=== PATIENT | male | born 1960 | race Caucasian/White ===

== ENCOUNTER 2016-07-11 13:10 | Inpatient (IN) | payer BC ==
--- NOTE | ~2016-07-11 | DS ---
Discharge Summary [facility] [address] [place]. [address] NAME: BHAVYA BENSON JR : 56 STATUS : DIS IN PAT#: [id number] AGE: 55 ADM/REG DATE : 07/11/16 MR#: [id number] REPORT SERV DATE: 07/14/16 DICTATED BY: ALVARO MARIE II DATE: 07/13/16 REPORT STATUS : Draft TRANSCRIBED BY: MODL DATE: 07/13/16 ADMISSION DATE: 07/11/2016 DISCHARGE DATE: 07/13/2016 DISCHARGE DIAGNOSES: 1. Biliary pancreatitis. 2. Gallstones. 3. Chronic lymphocytic leukemia. 4. Hypertension. CONSULTS: Dr. Garcia with Surgery. PROCEDURE: Laparoscopic cholecystectomy by Dr. Garcia. BRIEF HISTORY OF PRESENT ILLNESS: The patient is a 55-year-old male with the above history who presented to [facility] due to abdominal pain, fever, and chills. For detailed history and physical examination, please see Sayda Beckham's note from 07/11/2016. HOSPITAL COURSE: On admission, the patient had a lipase of 2200 with mild elevation of LFTs including alkaline phosphatase of 200, ALT 258, AST 48. White blood cell count 44. Ultrasound of gallbladder showed multiple gallstones include thickening of the gallbladder suggestive of chronic cholecystitis as well as a hypoechoic area in hepatic lobe, difficult to further appreciate recommending consideration for MRI or CT in the future as well as prominent pancreas consistent with pancreatitis. The patient was given supportive care. Dr. Garcia performed the surgery as per above and the patient is currently postoperatively recovering well with adequate pain control. His white count actually came down to 31, alkaline phosphatase 147, ALT 146, AST 24. Currently stable for discharge and will need to follow up with primary care physician, Dr. Garcia in two weeks. DISCHARGE MEDICATIONS: 1. Claritin 1 tab p.o. daily. 2. Equate Allergy daily. 3. Nexium 40 mg p.o. daily. DISCHARGE INSTRUCTIONS: The patient will follow Dr. Garcia and PCP in one to two weeks. ALEYDA/STEPHAN Alvaro Marie II, MD / [id number]
--- NOTE | ~2016-07-11 | HP ---
History And Physical [facility] [id number] [place]. [address] NAME: BHAVYA BENSON JR : 56 STATUS : ADM IN [facility]#: [id number] AGE: 55 ADM/REG DATE : 07/11/16 MR#: [id number] REPORT SERV DATE: 07/11/16 DICTATED BY: NILESH BCEKHAM DATE: 07/11/16 REPORT STATUS : Draft TRANSCRIBED BY: STEPHAN DATE: 07/11/16 DATE OF ADMISSION: 07/11/2016 CHIEF COMPLAINT: Abdominal pain, fever, and chills. HISTORY OF PRESENT ILLNESS: The patient is a 55-year-old gentleman who was a transfer from [facility] in [place]. The patient states on 07/01/2016, he started having abdominal pain with nausea and vomiting, and was evaluated at [facility], was admitted from 07/05/2016 through 07/07/2016. Upon discharge, stated he was feeling better. He said within 24 hours of post discharge, the patient started having abdominal pain and nausea and vomiting, stating that it was still ongoing through 07/11/2016, for which he was re-evaluated at [facility]. Upon assessment, the patient was having abdominal pain, fever, and chills. He does state that he was unable to tolerate regular diet at home. The patient stated that his pain is intense since last admission. He does deny history of any pancreatitis in the past. The patient does present with a history of CLL for which he was diagnosed in 2013. He is under the care of Dr. Taylor. He is not undergoing chemotherapy at this time. REVIEW OF SYSTEMS: Otherwise, negative review of systems except for the listed above. PAST MEDICAL HISTORY: 1. CLL diagnosed in 2013. 2. Hypertension. 3. Hyperlipidemia. 4. Gastroesophageal reflux disease. 5. Splenomegaly. 6. Degenerative disk disease. 7. Hemolytic anemia. PAST SURGICAL HISTORY: 1. Hernia repair. 2. Craniotomy in 2011. 3. Tonsil and adenoidectomy. ALLERGIES: PENICILLIN. SOCIAL HISTORY: The patient is , with two children. 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 Denies smoking. Denies alcohol use. PHYSICAL EXAMINATION: VITAL SIGNS: O2 saturation 94% on room air, temperature is 98.7, pulse is 86, respirations 20, blood pressure is 174/103. GENERAL: The patient is alert and oriented, in no acute distress. NECK: No JVD. No lymph nodes. LUNGS: Clear bilateral. No wheezes, rales, or rhonchi. History And Physical [address] [place]. [address] NAME: BHAVYA BENSON JR : 56 STATUS : ADM IN [facility]#: [id number] AGE: 55 ADM/REG DATE : 07/11/16 MR#: [id number] REPORT SERV DATE: 07/11/16 DICTATED BY: NILESH BECKHAM DATE: 07/11/16 REPORT STATUS : Draft TRANSCRIBED BY: MODTima DATE: 07/11/16 CARDIOVASCULAR: Regular rate and rhythm. No murmurs, rubs, or gallops. ABDOMEN: Soft, tender to touch in all four quadrants. Bowel sounds are active. Last bowel movement on 07/10/2016. EXTREMITIES: No cyanosis. No edema. NEUROLOGICAL: The patient is alert and oriented x3. LABORATORY DATA: WBC 45.8, hemoglobin 17.6, hematocrit 50.3, platelet count 327. Sodium is 135, potassium 3.9, chloride 97, CO2 of 25, glucose 174. AST is 278, ALT is 508, alkaline is 269. Amylase is 5232 and lipase is 67,724. IMAGING: To be obtained. ASSESSMENT AND PLAN: The patient will be admitted to the hospital. 1. Acute pancreatitis. The patient has had ongoing abdominal pain for over 10 days. The patient will be admitted, IV fluids initiated, on clear liquid diet. Continue to monitor labs. Consult GI and Surgery. 2. Abdominal pain due to acute pancreatitis. We will continue to provide pain coverage at this time with Dilaudid p.r.n. for pain. 3. CLL. The patient is under the care of Dr. Taylor. Not undergoing chemotherapy at this time. We will continue to monitor labs. 4. Hypertension. The patient states that he has been told about elevated blood pressure in the past. He is not on medication. We will add hydralazine p.r.n. and continue to monitor. 5. Nausea and vomiting due to acute pancreatitis. We will provide IV fluids, clear liquid diet and antiemetics p.r.n. 6. The patient is a full code. The patient will be followed by Dr. Jovon Conroy during his hospital stay. [facility]/MODL Nilesh Beckham NP / [id number] CC: MD Kevin Leyva Jr., M.D.
--- NOTE | ~2016-07-11 | CN ---
Consultation Report [facility] [address] [place]. [address] NAME: BHAVYA BENSON JR : 56 STATUS : ADM IN PAT#: [id number] AGE: 55 ADM/REG DATE : 07/11/16 MR#: [id number] REPORT SERV DATE: 07/13/16 DICTATED BY: RITO LUQUE DATE: 07/13/16 REPORT STATUS : Draft TRANSCRIBED BY: MODL DATE: 07/13/16 CONSULTATION DATE OF CONSULTATION: 07/12/2016 HISTORY OF PRESENT ILLNESS: This patient has a history of abdominal pain. He was admitted to [facility]. He was diagnosed with gallstones. He went home for outpatient followup. A few hours later, he began having more pain, was transferred here with a diagnosis of pancreatitis. Ultrasound here showed gallstones. Bile duct was not dilated. His laboratory work shows white count was 44,000. He does have a history of myeloproliferative process. His neutrophils counts are elevated. Amylase was 5000. Lipase was 67,000, now down to 2200. Mildly increase in liver enzymes. As far as I know, he has not had a CT scan. He underwent surgery with laparoscopic cholecystectomy with a normal intraoperative cholangiogram. PHYSICAL EXAMINATION: GENERAL: He is comfortable on room air. VITAL SIGNS: Blood pressure 173/103. CHEST: Clear. CARDIAC: Normal. ABDOMEN: Has some puncture sites from a trocar from the laparoscopic cholecystectomy, but really fairly soft and nontender. IMPRESSION: Biliary pancreatitis, seems to be interstitial. He has not had the signs of severity with third spacing of fluid, hemoconcentration, and warning signs such as hypoxemia, renal failure, GI bleeding, or hypotension. His absolute neutrophil count was increased. PLAN: He seems to be doing well postop. We will follow along with you. Watch for any signs of decompensation. MG/MODTima Rito Luque M.D. / [id number] CC: MD Kevin Leyva Jr., M.D.
--- NOTE | ~2016-07-11 | CN ---
Consultation Report [address] [address] NAME: BHAVYA BENSON JR : 56 STATUS : DIS IN PAT#: [id number] AGE: 55 ADM/REG DATE : 07/11/16 MR#: [id number] REPORT SERV DATE: 07/19/16 DICTATED BY: NEO ROMANO DATE: 07/12/16 REPORT STATUS : Draft TRANSCRIBED BY: MODL DATE: 07/12/16 SURGICAL CONSULT NOTE DATE OF CONSULTATION: 07/12/2016 ATTENDING: Dr. Garcia. REASON FOR CONSULTATION: Biliary pancreatitis. HISTORY OF PRESENT ILLNESS: The patient is a 55-year-old male, who was transferred from [place] yesterday who had recently had an admission there on 07/05/2016 and then discharged on 07/07/2016. This admission was for abdominal pain, nausea, and vomiting. The patient states that he was diagnosed with gallstones however, his symptoms had improved and he was planning to have outpatient followup. Approximately 24 hours after his discharge, he began experiencing similar symptoms. A few days later, he was re-evaluated in [place] and then transferred here with a diagnosis of acute pancreatitis. Prior to this admission, he was unable to tolerate p.o. An ultrasound performed at this facility does show evidence of gallstones and his read is currently pending. PAST MEDICAL HISTORY: 1. CLL. He sees Dr. Taylor for this. 2. Hypertension. 3. GERD. 4. Hyperlipidemia. 5. Splenomegaly. 6. Hemolytic anemia. 7. Degenerative disc disease. PAST SURGICAL HISTORY: He had bilateral inguinal hernia repairs as a child and a craniotomy in 2011 and tonsils and adenoids. ALLERGIES: PENICILLIN. SOCIAL HISTORY: He denies alcohol, tobacco, or recreational drug use. He is and has 2 children. MEDICATIONS: Include Nexium and Claritin. FAMILY HISTORY: Noncontributory. REVIEW OF SYSTEMS: A 12-point review of systems was obtained and found to be negative aside from that listed in the HPI. Consultation Report [address] [address] NAME: BHAVYA BENSON JR : 56 STATUS : DIS IN PAT#: [id number] AGE: 55 ADM/REG DATE : 07/11/16 MR#: [id number] REPORT SERV DATE: 07/19/16 DICTATED BY: NEO ROMANO DATE: 07/12/16 REPORT STATUS : Draft TRANSCRIBED BY: STEPHAN DATE: 07/12/16 PHYSICAL EXAMINATION: VITAL SIGNS: Temperature 99.1, blood pressure 157/87, pulse 98, respirations 16, and O2 saturation 95% on 2 L nasal cannula. GENERAL: Alert, pleasant male, in no acute distress. HEENT: Neck is supple. No lymphadenopathy. CARDIOVASCULAR: Regular rate and rhythm. PULMONARY: Clear to auscultation bilaterally. ABDOMEN: Soft. There is mild epigastric tenderness to palpation. Mild abdominal distention. No evidence of peritonitis. EXTREMITIES: His extremities are perfused. DATA: His white blood cell count is 44, the patient states his baseline is typically around 25, his hematocrit is 47, and platelets 271. His BMP is within normal limits. Creatinine 0.8, albumin 3.2, total bilirubin is 1.1, down from 2.7 yesterday. His amylase was 5000 yesterday, lipase is now 2200 down from 67,000. His alkaline phosphatase is 200, ALT 250, AST 48, all of which are trending down. ASSESSMENT AND PLAN: This is a 55-year-old male with biliary pancreatitis. Ultrasound shows evidence of multiple gallstones. His total bilirubin has trended back to normal. His lipase is now 22.3. The patient agreed to proceed with laparoscopic cholecystectomy and intraoperative cholangiogram today. The risk and benefits of surgery including infection, bleeding, possible bile duct and bowel injury were discussed with the patient in detail, and he has elected to proceed. DICTATED BY: Brittney Broussard MD JR/STEPHAN Neo Romano M.D. / [id number] CC: MD Kevin Leyva Jr., M.D.
--- NOTE | ~2016-07-11 | OP ---
Record Of Operation [facility] [address] [place]. [address] NAME: BHAVYA PACHECO JR : 56 STATUS : ADM IN [facility]#: [id number] AGE: 55 ADM/REG DATE : 07/11/16 MR#: [id number] REPORT SERV DATE: 07/12/16 DICTATED BY: NEO ROMANO DATE: 07/12/16 REPORT STATUS : Draft TRANSCRIBED BY: MODL DATE: 07/12/16 DATE OF PROCEDURE: 07/12/2016 PREOPERATIVE DIAGNOSIS: Biliary pancreatitis. POSTOPERATIVE DIAGNOSIS: Biliary pancreatitis. PROCEDURE: Laparoscopic cholecystectomy with intraoperative cholangiogram. ATTENDING SURGEON: Neo Romano M.D. CHIEF SURGEON: Brittney Broussard MD ANESTHESIA: General. ESTIMATED BLOOD LOSS: Minimal. COMPLICATIONS: None. SPECIMEN: Gallbladder with stones. INDICATION FOR PROCEDURE: Mr. Pacheco is a 55-year-old male with history and diagnostic workup including ultrasound imaging consistent with biliary pancreatitis. For that reason, risks and benefits of cholecystectomy and cholangiogram were discussed with the patient in detail. He elected to proceed. DESCRIPTION OF PROCEDURE: The patient was taken to the operating room and placed on the operating table in supine position. After induction of general anesthesia, a time-out procedure was performed to ensure proper procedure and patient identification. The patient's abdomen was prepped and draped in the usual sterile fashion. The infraumbilical skin incision was created using a scalpel. A 10 mm trocar was then advanced under Optiview technique in a transrectus fashion into the abdomen. The abdomen was insufflated and a laparoscope was inserted, and the abdomen inspected. No injuries from trocar placement were noted. The patient was then placed in reverse Trendelenburg position with right side elevated. One additional 10 mm trocar was placed in the epigastrium and two additional 5 mm trocars placed along the right costal margin. The gallbladder was grasped through the lateral port and retracted superiorly. The inferior aspect was grasped and retracted laterally. The peritoneum overlying the cystic duct and cystic artery were bluntly dissected. Both structures were circumferentially dissected until the junction of the gallbladder could clearly be appreciated. The cystic artery was doubly clipped and divided close to the gallbladder wall. A single clip was placed high on the cystic duct. A ductotomy was created. The cholangiocatheter was then advanced into the duct and secured with a clip. Cholangiogram was performed. This did confirm our presence in the cystic duct. Contrast did fill the common duct and empty into the duodenum without evidence of filling defect. At this point, cholangiogram was terminated. The cholangiocatheter and clip were removed. The cystic duct was then doubly clipped and divided. The gallbladder Record Of [address] [place]. [address] NAME: MARCELINO CLARKBHAVYA CLAUDIA : 56 STATUS : ADM IN PAT#: [id number] AGE: 55 ADM/REG DATE : 07/11/16 MR#: [id number] REPORT SERV DATE: 07/12/16 DICTATED BY: NEO ROMANO DATE: 07/12/16 REPORT STATUS : Draft TRANSCRIBED BY: STEPHAN DATE: 07/12/16 was dissected free from the liver bed using electrocautery and removed from the abdomen. All secondary trocars were then removed under direct visualization. The periumbilical trocar was removed. The abdomen was allowed to collapse. The epigastric trocar site fascia was reapproximated with [id number] 0 Vicryl. Skin incisions were reapproximated with interrupted inverted 4-0 Monocryl. Sterile dressings were applied. The patient tolerated the procedure well and was taken to the PACU in stable condition. DICTATED BY: Brittney Broussard MD JR/STEPHAN Neo Romano M.D. / [id number] CC: MD Kevin Leyva Jr., M.D.
[~2016-07-11 13:10] MED LIST: ACET500CAP PO; ADVIL PO; CLARIT10 PO; MULTIPLE VIT PO; NEXIUM20 M1 PO; NEXIUM40 PO; SUDAFED 60 MG T60 MG OR; ZANTAC 75 PO; ZOCOR40 PO; [UNRECOGNIZED DRUG - REMARK] PO
[2016-07-11] MEDS ORDERED: CLARITD24H PO (14:36)
[2016-07-11] MEDS ORDERED: NEXIUM20 M1 PO (14:37)
[2016-07-11] MEDS ORDERED: EQUATE ALLERGY PO (14:37)
[2016-07-12 07:06] LABS: MEAN CORPUS HGB CONC 34.7 g/dL (32.0-36.0); MEAN PLATELET VOLUME 10.3 fL (9.2-13.0)
[2016-07-12 07:07] LABS: HEMATOCRIT 47.9 % (40.0-51.0); HEMOGLOBIN 16.6 g/dL (13.6-17.8); MEAN CORPUSCULAR VOLUME 86.5 fL (80-100); PLATELET COUNT 271 10/3/uL (150-400); RBC DISTRIBUTION WIDTH 12.7 % (12.0-16.0); RED CELL COUNT 5.54 10/6/uL (4.7-6.1)
[2016-07-12 07:10] LABS: MANUAL DIFF YES %
[2016-07-12 07:14] LABS: A/G RATIO 0.9 (0.7-1.9); ALBUMIN 3.2 G/DL (3.5-5.0); CALCIUM, SERUM 7.9 MG/DL (8.5-10.4); CHLORIDE, SERUM 103 MMOL/L (96-112); GFR AFRICAN AMERICAN 115 ML/MIN (>=60); GFR NON AFRICAN AMERICAN 99 ML/MIN (>=60); GLOBULIN 3.6 G/DL (2.5-4.1); POTASSIUM, SERUM 4.5 MMOL/L (3.5-5.3); SGPT(ALT) 250 U/L (5-65); SODIUM, SERUM 136 MMOL/L (135-148); TOTAL PROTEIN 6.8 G/DL (6.0-8.5)
[2016-07-12 07:15] LABS: ALKALINE PHOSPHATASE 200 U/L (45-117); BUN (BLOOD UREA NITROGEN) 7 MG/DL (6-23); CO2 (CARBON DIOXIDE) 20 MMOL/L (24-34); GLUCOSE, SERUM 93 MG/DL (60-99); TOTAL BILIRUBIN 1.1 MG/DL (0-1.2)
[2016-07-12 07:16] LABS: SGOT(AST) 48 U/L (5-40)
[2016-07-12 08:00] LABS: LYMPHOCYTES 71 %; LYMPHOCYTES ABSOLUTE (CALC) 31.24 10/3/uL (0.67-4.30); MONOCYTES 1 %; MONOCYTES ABSOLUTE (CALC) 0.44 10/3/uL (0.21-1.20); NEUTROPHILS ABSOLUTE (CALC) 12.32 10/3/uL (2.02-8.40); PLATELET ESTIMATE ADQ (ADEQUATE); RBC MORPHOLOGY NORM (NORMAL); SEGMENTED NEUTROPHIL (0) 28 %; SMUDGE CELLS MANY; TOTAL NUCLEATED CELLS 100
[2016-07-13 06:39] LABS: HEMOGLOBIN 13.8 g/dL (13.6-17.8); MEAN CORPUS HGB CONC 34.5 g/dL (32.0-36.0); MEAN CORPUSCULAR HEMOGLOB 29.7 pg (26.0-34.0); MEAN CORPUSCULAR VOLUME 86.2 fL (80-100); MEAN PLATELET VOLUME 10.1 fL (9.2-13.0); PLATELET COUNT 219 10/3/uL (150-400); RBC DISTRIBUTION WIDTH 12.9 % (12.0-16.0); RED CELL COUNT 4.64 10/6/uL (4.7-6.1)
[2016-07-13 06:42] LABS: MANUAL DIFF YES %; WHITE BLOOD CELLS 31.5 10/3/uL (4.5-10.5)
[2016-07-13 06:52] LABS: A/G RATIO 0.9 (0.7-1.9); BUN (BLOOD UREA NITROGEN) 7 MG/DL (6-23); CALCIUM, SERUM 8.2 MG/DL (8.5-10.4); CHLORIDE, SERUM 101 MMOL/L (96-112); CREATININE 0.74 MG/DL (0.70-1.30); GFR AFRICAN AMERICAN 119 ML/MIN (>=60); GFR NON AFRICAN AMERICAN 102 ML/MIN (>=60); GLOBULIN 3.3 G/DL (2.5-4.1); GLUCOSE, SERUM 93 MG/DL (60-99); POTASSIUM, SERUM 3.9 MMOL/L (3.5-5.3); SGOT(AST) 24 U/L (5-40); SGPT(ALT) 146 U/L (5-65); SODIUM, SERUM 139 MMOL/L (135-148); TOTAL BILIRUBIN 1.2 MG/DL (0-1.2); TOTAL PROTEIN 6.3 G/DL (6.0-8.5)
[2016-07-13 06:54] LABS: ALKALINE PHOSPHATASE 147 U/L (45-117); BAND NEUTROPHILS 1 %; CO2 (CARBON DIOXIDE) 28 MMOL/L (24-34); EOSINOPHILS 2 %; EOSINOPHILS ABSOLUTE (CALC) 0.63 10/3/uL (0.0-0.53); LYMPHOCYTES 82 %; LYMPHOCYTES ABSOLUTE (CALC) 25.83 10/3/uL (0.67-4.30); MONOCYTES 2 %; MONOCYTES ABSOLUTE (CALC) 0.63 10/3/uL (0.21-1.20); NEUTROPHILS ABSOLUTE (CALC) 4.41 10/3/uL (2.02-8.40); PLATELET ESTIMATE ADQ (ADEQUATE); SEGMENTED NEUTROPHIL (0) 13 %; SMUDGE CELLS MANY; TOTAL NUCLEATED CELLS 100
[2016-07-13 06:55] LABS: RBC MORPHOLOGY NORM (NORMAL)
[2016-07-13] MEDS ORDERED: PCET PO (14:57)
== END 2016-07-13 15:52 | disposition home or self-care (01) | DRG 418 ==
LOC: 5SO 13:10
PROVIDERS: Internal Medicine; Nurse Practitioner Adult Health
DX: K85.10 Biliary acute pancreatitis without necrosis or infection (principal); C91.10 Chronic lymphocytic leukemia of B-cell type not having achieved remission; I10 Essential (primary) hypertension; K21.9 Gastro-esophageal reflux disease without esophagitis; E78.5 Hyperlipidemia, unspecified; Z88.0 Allergy status to penicillin; K80.80 Other cholelithiasis without obstruction
CPT/HCPCS: 76705; 77001; 80053; 83690; 85025; 88304; J0360; J0690; J1170; J2250; J2270; J2405; J2710; J3010; Q9967